=== PATIENT | male | born 1935 | race Caucasian/White ===

== ENCOUNTER 2021-12-28 06:14 | Emergency (ER) | payer MEDICARE ==
[2021-12-28 06:28] VITALS: PULSE 82
[2021-12-28] MEDS ORDERED: cloNIDine 0.1 MG Tab PO ONE (06:44)
[2021-12-28] MEDS ORDERED: cloNIDine 0.1 MG Tab ONE (06:45)
[2021-12-28 06:49] VITALS: BP 203/106
[2021-12-28] MEDS ORDERED: Diphtheria,Pertussis(Acell),Tetanus Vaccine 0.5 ML Syringe IM ONE (07:34)
== END 2021-12-28 07:55 | disposition home or self-care (01) ==
LOC: DL.ED 06:14
DX: S60.222A Contusion of left hand, initial encounter (principal); K21.9 Gastro-esophageal reflux disease without esophagitis; I10 Essential (primary) hypertension; Z91.048 Other nonmedicinal substance allergy status; Z87.891 Personal history of nicotine dependence; Z23 Encounter for immunization; W19.XXXA Unspecified fall, initial encounter
CPT/HCPCS: 36415; 73130; 80053; 85025; 90471; 90715; 99283; A9270; 99284

== ENCOUNTER 2022-01-01 18:49 | Emergency (ER) | payer MEDICARE ==
[2022-01-01 19:20] VITALS: BP 162/94; PULSE 99
== END 2022-01-01 19:45 | disposition home or self-care (01) ==
LOC: DL.ED 18:49
DX: S60.222A Contusion of left hand, initial encounter (principal); I10 Essential (primary) hypertension; K21.9 Gastro-esophageal reflux disease without esophagitis; Z91.048 Other nonmedicinal substance allergy status; W22.09XA Striking against other stationary object, initial encounter; Y92.009 Unspecified place in unspecified non-institutional (private) residence as the place of occurrence of the external cause
CPT/HCPCS: 99283